=== PATIENT | female | born 1965 | race Caucasian/White ===

== ENCOUNTER 2017-02-06 19:24 | Emergency (ER) | payer MEDICAID ==
[~2017-02-06] VITALS: Ht 170.2 cm; Wt 72.7 kg
[2017-02-06] MEDS ORDERED: ALPRAZolam 0.25 MG TABLET PO ONE (21:15)
[2017-02-06] MEDS ORDERED: KETOROLAC TROMETHAMINE 30 MG/ML VIAL IM ONE (22:00)
[2017-02-06 22:30] VITALS: BP 108/69
== END 2017-02-06 22:51 | disposition home or self-care (01) ==
LOC: EMS 19:28 → EDBD 19:28 → EMS 22:51
DX: G43.909 Migraine, unspecified, not intractable, without status migrainosus (principal); R42 Dizziness and giddiness; I10 Essential (primary) hypertension
CPT/HCPCS: 96372; 99283; J1885

== ENCOUNTER 2022-10-16 12:40 | Emergency (ER) | payer MEDICAID ==
[~2022-10-16] VITALS: Ht 170.2 cm; Wt 68.2 kg
[2022-10-16] MEDS ORDERED: htn PO (12:48)
[2022-10-16] MEDS ORDERED: HYDROCODONE/ACETAMINOPHEN 5-325 MG TABLET PO ONE (16:00)
[2022-10-16] MEDS ORDERED: KETOROLAC TROMETHAMINE 30 MG/ML VIAL IM ONE (17:45)
[2022-10-16 20:54] VITALS: BP 140/79
[2022-10-16] MEDS ORDERED: IBUP-1492 PO (20:55)
== END 2022-10-16 21:39 | disposition home or self-care (01) ==
LOC: EMS 12:43
DX: S00.83XA Contusion of other part of head, initial encounter (principal); M25.511 Pain in right shoulder; M25.522 Pain in left elbow; F41.9 Anxiety disorder, unspecified; I11.9 Hypertensive heart disease without heart failure; G43.909 Migraine, unspecified, not intractable, without status migrainosus; Y04.8XXA Assault by other bodily force, initial encounter; Y93.89 Activity, other specified; Y92.89 Other specified places as the place of occurrence of the external cause; Y99.8 Other external cause status
CPT/HCPCS: 99285; 70450; 71046; 73030; 73080; 93005; 96372; J1885